=== PATIENT | female | born 1990 | race Two or more races ===

== ENCOUNTER 2022-02-26 23:13 | Emergency (ER) | payer OTHER ==
[~2022-02-26] VITALS: Ht 170.2 cm; Wt 68.0 kg
--- NOTE | 2022-02-26 23:15 | NUR ---
PT BIB [facility] AND ACCOMPANIED BY [employer] (UNIT [address] SERIAL #[id number] AND #[id number] AT BEDSIDE) PT ARRESTED FOR TRESPASSING. PT CAME IN UNCOOPERATIVE, YELLING AT STAFF. UNABLE TO OBTAIN PROPER HX AND REFUSED VITALS TO BE TAKEN . NO SOB OR LABORED BREATHING NOTED NOTED WITH CLEAR SPEECH AND COMPLETE SENTENCES.
--- NOTE | 2022-02-26 23:19 | NUR ---
DR. NAZARIO AT BEDSIDE, MSE IN PROGRESS.
[2022-02-26] MEDS ORDERED: diphenhydrAMINE 50 MG/1 ML VIAL ONE (23:28)
[2022-02-26] MEDS ORDERED: HALOPERIDOL LACTATE 5 MG/1 ML VIAL ONE (23:28)
[2022-02-26] MEDS ORDERED: LORAZEPAM 2 MG/1 ML VIAL ONE (23:29)
[2022-02-26] MEDS ORDERED: diphenhydrAMINE 50 MG/1 ML VIAL IM ONE (23:30)
[2022-02-26] MEDS ORDERED: LORAZEPAM 2 MG/1 ML VIAL IM ONE (23:30)
[2022-02-26] MEDS ORDERED: HALOPERIDOL LACTATE 5 MG/1 ML VIAL IM ONE (23:30)
--- NOTE | 2022-02-26 23:58 | NUR ---
PT PLACED ON A 5150 HOLD MY [employer], CALLED BUFFING LINE SET UP WORKER AND MADE AWARE THAT WE NEED 1:1 SITTER, NO SITTER AVAILABLE AT THIS TIME.
--- NOTE | 2022-02-27 00:04 | NUR ---
LAB AT BEDSIDE.
[2022-02-27 00:57] LABS: ALANINE AMINOTRANSFERASE 17 U/L (14-59); ALKALINE PHOSPHATASE 80 U/L (50-136); ASPARTATE AMINOTRANSFERASE 11 U/L (15-37); BILIRUBIN,DIRECT 0.2 mg/dL (0.0-0.2); BILIRUBIN,TOTAL 1.2 mg/dL (0.2-1.0); CARBON DIOXIDE 23 mmol/L (21-32); CHLORIDE 105 mmol/L (98-107); CREATININE 0.6 mg/dL (0.6-1.3); GLUCOSE 104 mg/dL (74-106); TOTAL PROTEIN, SERUM 7.1 g/dL (6.4-8.2); UREA NITROGEN, BLOOD 18 mg/dL (7-18)
[2022-02-27 00:58] LABS: ACETAMINOPHEN < 2.0 ug/mL (10-30)
[2022-02-27 00:59] LABS: ETHANOL < 3 MG/DL (0-0)
[2022-02-27] MEDS ORDERED: POTASSIUM BICARBONATE/CIT AC 25 MEQ TABLET.EFF PO ONE (01:15)
[2022-02-27 01:30] LABS: *BLOOD, URINE NEGATIVE (NEGATIVE); *COLOR,URINE YELLOW (YELLOW); *KETONES,URINE TRACE (NEGATIVE); *UROBILINOGEN,URINE 0.2 E.U./dl (NORMAL); LEUKOCYTE ESTERASE ,URINE TRACE (NEGATIVE); NITRITE, URINE NEGATIVE (NEGATIVE); PH,URINE 5.5 (5.0-8.0); UGLUCOSE NEGATIVE (NEGATIVE)
[2022-02-27 01:31] LABS: *BILIRUBIN,URIN 1+ (NEGATIVE); *CLARITY,URINE HAZY (CLEAR)
[2022-02-27 01:32] LABS: *AMPHETAMINE, URINE POSITIVE (NEGATIVE); *CANNABINOID, URINE NEGATIVE (NEGATIVE); *COCCAINE, URINE NEGATIVE (NEGATIVE); *OPIATE, URINE POSITIVE (NEGATIVE); *PHENCYCLIDINE SCREEN,URINE NEGATIVE (NEGATIVE)
[2022-02-27 01:59] LABS: BACTERIA,URINE FEW /HPF (NONE SEEN); SQUAMOUS EPITHELIAL CELL,UR FEW /HPF (NONE SEEN)
[2022-02-27 03:35] LABS: HEMATOCRIT 37.5 % (31.2-41.9); MEAN CORPUSCULAR HEMOGLOBIN 29.2 uug (24.7-32.8); MEAN CORPUSCULAR VOLUME 85.5 fL (75.5-95.3); PLATELET COUNT (AUTO) 322 K/uL (179-408)
--- NOTE | 2022-02-27 04:14 | NUR ---
PT IS IN BED EYES CLOSED, BREATHING EVEN AD UNLABORED. VSS. BED IN LOWEST POSITION FOR SAFETY PRECAUTIONS. PROVIDED PT WITH CALM, QUIET AND SAFE ENVIRONMENT WITH DECREASED STIMULI.
[2022-02-27] MEDS ORDERED: POTASSIUM BICARBONATE/CIT AC 25 MEQ TABLET.EFF ONE (06:02)
--- NOTE | 2022-02-27 06:45 | NUR ---
PT IN BED RESTING COMFORTABLY. DROUSY BUT EASILY AROUSABLE. DENIES ANY PAIN/DISCOMFORT.
--- NOTE | 2022-02-27 07:10 | NUR ---
received report from shift production supervisor nurse. patient in deep sleep no sitter avialable at this time. patient being closely monitored. Addendum: 02/27/22 at 1230 by ALMA reported by shift production supervisor nurse that crisis team needs to be called for re-evaluation for hold once patient is arousable and able to communicate and answer questions for interviewHenrry Estevez is crisis team prevention specialist for today.
--- NOTE | 2022-02-27 07:20 | NUR ---
sitter was provided at this time. patient continues to be sleeping.
--- NOTE | 2022-02-27 09:00 | NUR ---
patient deep sleep oxygen saturation 99% room air and heart rate in the 70s. sitter at bedside.
--- NOTE | 2022-02-27 10:00 | NUR ---
patient continues to be in deep sleep. monitoring continued. sitter at bedside.
--- NOTE | 2022-02-27 11:30 | NUR ---
patient will wake up to move position and continues to deep sleep. sitter continues to be at bedside. Zenaida is crisis team industry segment specialist today. Nurse in am reported plan to call crisis team once patient is awake and able to answer questions. patient is not easily arousable at this time.
--- NOTE | 2022-02-27 12:54 | NUR ---
patient woke up asking to go to the bathroom patient unable to get out of bed and explained that she has a catheter in place. patient is calm at this time was only able to answer how old she is and could not answer her name or date of d/t falling back asleep and could not answer anymore questions.
--- NOTE | 2022-02-27 15:15 | NUR ---
patient complaining she was wet and patient stated she had pulled out catheter.
--- NOTE | 2022-02-27 15:33 | NUR ---
patient is also asking for food and falls back asleep. ordered tray for patient.
--- NOTE | 2022-02-27 15:50 | NUR ---
tried to talk to patient and ask questions to assess if she can be awake to answer questions for crisis team evaluation. patient refuses to answer questions states she is really tired turns around to go back to sleep.
--- NOTE | 2022-02-27 16:53 | NUR ---
patient get out of bed demands and yells to turn off the light to go back to sleep. patient getting up out of bed not saying where she is going, called nuvia jackson. patient then insists that is now going to the bathroom. patient taken to the bathroom slightly unsteady gait.
--- NOTE | 2022-02-27 17:04 | NUR ---
called and spoke to crisis team mail sorter and delivery uzma. States she will come in later to re-evaluate patient for continuance of 5150 hold. Patient is awake and eating able to answer questions angry that not able to sleep. 1:1 sitter at bedside
--- NOTE | 2022-02-27 18:20 | NUR ---
patient periodically wakes up and grabs some food to eat from her tray and yells for agitated for the light to be turned off because she wants to sleep. Explained that she needs to be more awake because an evaluation team will be coming in soon to see and talk to her.
--- NOTE | 2022-02-27 19:00 | NUR ---
Patient sleeping, sitter at bedside.
--- NOTE | 2022-02-27 19:42 | NUR ---
Fiona called ETA 5 mins.
--- NOTE | 2022-02-27 20:13 | NUR ---
Fiona crisis team stoker installation mechanic at bedside.
[2022-02-27] MEDS ORDERED: POTA-194 PO (20:42)
--- NOTE | 2022-02-27 21:00 | NUR ---
Dischrge instructions given. However, patient stated that "I'm tired. Can I sign it later?". Patient went back to sleep.
--- NOTE | 2022-02-27 21:19 | NUR ---
Patient given written and verbal discharge instructions. Patient verbalizes understanding of instructions. Patient is ambulatory with steady gait. Refuses offer of halfway placement. Patient given list of available shelters in surrounding area.
[2022-02-27 21:56] VITALS: BP 120/60
== END 2022-02-27 21:30 | disposition home or self-care (01) ==
LOC: ER 23:15
DX: F29 Unspecified psychosis not due to a substance or known physiological condition (principal); F15.10 Other stimulant abuse, uncomplicated; F11.10 Opioid abuse, uncomplicated; E87.6 Hypokalemia; I45.10 Unspecified right bundle-branch block; Z20.822 Contact with and (suspected) exposure to COVID-19; Z59.00 Homelessness unspecified; Z82.49 Family history of ischemic heart disease and other diseases of the circulatory system
CPT/HCPCS: 36415; 80048; 80076; 80299; 80307; 80320; 81001; 84702; 85025; 87086; 87426; 93005; 96372; 99285; J1200; J1630; J2060; A4663; C1758; G0480